=== PATIENT | female | born 1945 | race Caucasian/White ===

== ENCOUNTER 2025-07-13 13:46 | Outpatient (CLI) | payer BC ==
[2025-07-13 14:49] LABS: MEAN PLATELET VOLUME 6.7 FL (7.4-10.4); PRE OP HEMATOCRIT 44.5 % (35.0-45.0); PRE OP HEMOGLOBIN 14.5 g/dL (12.0-16.0); PRE OP PLATELET COUNT 341 X10'3 (140-440); PRE OP WHITE BLOOD COUNT 6.8 10'3 (4.8-10.8); RED CELL DISTRIBUTION WIDTH 15.6 % (11.5-14.5)
[2025-07-13] MEDS ORDERED: ACET-1025 PO (14:54)
[2025-07-13] MEDS ORDERED: TRAZ-256 PO (14:54)
[2025-07-13] MEDS ORDERED: HYDR-3965 PO (14:54)
[2025-07-13] MEDS ORDERED: SYN0.088T PO (14:54)
[2025-07-13] MEDS ORDERED: AMLO2.5T2 PO (14:54)
[2025-07-13] MEDS ORDERED: OMEP40CA21 PO (14:54)
[2025-07-13] MEDS ORDERED: WARF-55 PO (14:54)
[2025-07-13 14:59] LABS: PRE OP INR 1.1 INR; PRE OP PROTIME 11.4 SECONDS (9.0-12.0)
--- NOTE | 2025-07-13 15:00 | ELECTROCARDIOGRAPH REPORT ---
[facility] Test Date: 2025-07-13 Test Time: 14:59:00 Pat Name: POLO OSEGUERA Department: [facility]-PRE-OP Patient ID: [id number] Room: Gender: F Dental Mechanic: fernandez : 1945 Requested By: ZAC BATEMAN Order Number: [id number] Reading MD: Dr. HEIDY Gonzalez Measurements Intervals [place] Rate: 82 P: 60 CT: 167 QRS: 32 QRSD: 93 T: 47 QT: 376 QTc: 439 Interpretive Statements Sinus rhythm Electronically Signed On 07-13-2025 20:36:[address] HEIDY Gonzalez Please click the below link to view image of tracing.
[2025-07-13 15:01] LABS: CREATININE 1.03 MG/DL (0.40-0.90); PRE OP ALT 17 U/L (30-65); PRE OP ANION GAP 9 (8-16); PRE OP AST 21 U/L (10-37); PRE OP BILIRUB, TOTAL 0.2 MG/DL (0.0-1.0); PRE OP GLUCOSE 115 MG/DL (70-104); PRE OP POTASSIUM 4.6 MMOL/L (3.4-5.1); PRE OP SODIUM 138 MMOL/L (135-145); TOTAL CARBON DIOXIDE 30.0 MMOL/L (24-32); eGFR 52 ML/MIN
[2025-07-13 15:02] LABS: PRE OP PARTIAL THROMB. TIME 38.0 SECONDS (22-32)
[2025-07-21] MEDS ORDERED: BUPIVACAINE liposomal/PF 13.3 MG/ML 10mL vial IM ONE (13:28)
== END 2025-07-13 23:59 | disposition home or self-care (01) ==
LOC: LAB 13:46 → EDSTATUS 07-16 15:00
PROVIDERS: ATTEND Podiatrist Foot & Ankle Surgery
DX: Z01.818 Encounter for other preprocedural examination (principal); S96.912A Strain of unspecified muscle and tendon at ankle and foot level, left foot, initial encounter; S82.892A Other fracture of left lower leg, initial encounter for closed fracture; I10 Essential (primary) hypertension; Z87.891 Personal history of nicotine dependence; Z79.891 Long term (current) use of opiate analgesic; Z79.899 Other long term (current) drug therapy; Z90.89 Acquired absence of other organs; Z90.49 Acquired absence of other specified parts of digestive tract; Z90.710 Acquired absence of both cervix and uterus; Z98.890 Other specified postprocedural states; Z88.0 Allergy status to penicillin; Z88.5 Allergy status to narcotic agent; X58.XXXA Exposure to other specified factors, initial encounter; Y93.89 Activity, other specified; Y92.89 Other specified places as the place of occurrence of the external cause; Y99.8 Other external cause status
CPT/HCPCS: 36415; 80053; 85025; 85610; 85730; 93005